=== PATIENT | male | born 2000 | race African-American/Black ===

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

== ENCOUNTER 2022-03-01 11:24 | Inpatient (IN) | payer OTHER ==
[~2022-03-01] VITALS: Ht 175.3 cm; Wt 85.0 kg
[~2022-03-01 11:24] MED LIST: HYDR50TA70 PO; SERT50TA29 PO
[2022-03-01 12:43] LABS: HEMATOCRIT 43.2 % (42.0-52.0); HEMOGLOBIN 15.4 g/dl (13.5-17.5); MEAN CORPUSCULAR HEMOGLOBIN 29.2 pg (27.0-33.0); MEAN CORPUSCULAR HGB CONC 35.6 g/dl (32.0-36.5); MEAN CORPUSCULAR VOLUME 81.8 fl (80.0-96.0); PLATELET COUNT, AUTOMATED 237 10^3/uL (150-450); RED BLOOD COUNT 5.28 10^6/uL (4.30-6.10); WHITE BLOOD COUNT 7.2 10^3/uL (4.0-10.0)
[2022-03-01 13:17] LABS: RSV AMPLIFICATION NEGATIVE (NEGATIVE)
[2022-03-01 13:18] LABS: ACETAMINOPHEN LEVEL < 2.0 UG/ML (10.0-30.0); ALBUMIN 3.7 GM/DL (3.2-5.2); ALT/SGPT 15 U/L (12-78); BILIRUBIN,DIRECT 0.1 MG/DL (0.0-0.2); BILIRUBIN,TOTAL 0.4 MG/DL (0.2-1.0); BLOOD UREA NITROGEN 8 MG/DL (7-18); CALCIUM LEVEL 9.6 MG/DL (8.5-10.1); CARBON DIOXIDE LEVEL 31 MEQ/L (21-32); CHLORIDE LEVEL 107 MEQ/L (98-107); CREATININE FOR GFR 1.01 MG/DL (0.70-1.30); ETHYL ALCOHOL (ETHANOL) < 0.003 % (0.000-0.010); GLUCOSE, FASTING 90 MG/DL (70-100); POTASSIUM SERUM 3.7 MEQ/L (3.5-5.1); SALICYLATE LEVEL < 1.7 MG/DL (5.0-30.0); SODIUM LEVEL 143 MEQ/L (136-145); TOTAL PROTEIN 7.4 GM/DL (6.4-8.2)
[2022-03-01 13:32] LABS: AMPHETAMINES LEVEL URINE NEGATIVE (NEGATIVE); BARBITURATES URINE NEGATIVE (NEGATIVE); BENZODIAZEPINES URINE NEGATIVE (NEGATIVE); CANNABINOIDS URINE POSITIVE (NEGATIVE); COCAINE METABOLITE URINE NEGATIVE (NEGATIVE); METHADONE URINE NEGATIVE (NEGATIVE); OPIATES URINE NEGATIVE (NEGATIVE); PHENCYCLIDINE URINE NEGATIVE (NEGATIVE)
[2022-03-01] MEDS ORDERED: HOME MED LIST COMPLETE! XX SCH (20:50)
[2022-03-02] MEDS ORDERED: MOM 30ML SUSPENSION UDC PO PRN (15:20)
[2022-03-02] MEDS ORDERED: MAALOX 30 ML SUSP *UDC PO PRN (15:20)
[2022-03-02] MEDS ORDERED: ACETAMINOPHEN TAB 650MG DOSE (2X325MG) PO PRN (15:20)
[2022-03-02 16:14] VITALS: BP 142/84
[2022-03-03 06:33] VITALS: BP 125/75
[2022-03-03 18:38] VITALS: BP 151/67
[2022-03-04 06:34] VITALS: BP 148/98
[2022-03-04 18:51] VITALS: BP 145/72
[2022-03-05 06:19] VITALS: BP 139/77
[2022-03-05 17:54] VITALS: BP 105/78
[2022-03-05] MEDS: traZODone 50 MG TAB PO PRN (21:08)
[2022-03-06 07:08] VITALS: BP 139/86
[2022-03-06 18:00] VITALS: BP 149/70
[2022-03-06] MEDS: traZODone 50 MG TAB PO PRN (22:27)
[2022-03-07 06:58] VITALS: BP 128/88
== END 2022-03-07 12:35 | disposition home or self-care (01) | DRG 882 ==
LOC: M ED 11:24 → M ED INP 03-02 15:19 → M PSY 03-02 16:10
PROVIDERS: ADMIT Psychiatry & Neurology Psychiatry; ATTEND Psychiatry & Neurology Psychiatry
DX: F43.25 Adjustment disorder with mixed disturbance of emotions and conduct (principal); R45.851 Suicidal ideations; Z63.4 Disappearance and death of family member; Z56.4 Discord with boss and workmates; Z20.822 Contact with and (suspected) exposure to COVID-19; G43.909 Migraine, unspecified, not intractable, without status migrainosus; F90.9 Attention-deficit hyperactivity disorder, unspecified type; F17.290 Nicotine dependence, other tobacco product, uncomplicated

== ENCOUNTER 2023-10-09 09:09 | Inpatient (IN) | payer OTHER ==
[~2023-10-09] VITALS: Ht 175.3 cm; Wt 93.2 kg
[2023-10-09 09:48] LABS: HEMATOCRIT 42.5 % (42.0-52.0); HEMOGLOBIN 15.5 g/dl (13.5-17.5); MEAN CORPUSCULAR HEMOGLOBIN 29.3 pg (27.0-33.0); MEAN CORPUSCULAR HGB CONC 36.5 g/dl (32.0-36.5); MEAN CORPUSCULAR VOLUME 80.3 fl (80.0-96.0); PLATELET COUNT, AUTOMATED 241 10^3/uL (150-450); RED BLOOD COUNT 5.29 10^6/uL (4.30-6.10)
[2023-10-09] MEDS ORDERED: MED REC IN PROGRESS XX SCH (09:50)
[2023-10-09 10:06] LABS: ETHYL ALCOHOL (ETHANOL) 0.003 % (0.000-0.010)
[2023-10-09 10:07] LABS: SALICYLATE LEVEL < 3.0 MG/DL (<30)
[2023-10-09 10:08] LABS: ALBUMIN 4.2 G/DL (3.2-5.2); ALKALINE PHOSPHATASE 91 U/L (46-116); ALT/SGPT 10 U/L (7.0-40); AST/SGOT 11 U/L (<34); BILIRUBIN,DIRECT 0.2 MG/DL (<0.4); BILIRUBIN,TOTAL 0.5 MG/DL (0.3-1.2); BLOOD UREA NITROGEN 11 MG/DL (9-23); CARBON DIOXIDE LEVEL 26 MMOL/L (20-31); CHLORIDE LEVEL 104 MMOL/L (98-107); CREATININE FOR GFR 1.04 MG/DL (0.70-1.30); GLOMERULAR FILTRATION RATE > 60.0 (>60); GLUCOSE, FASTING 131 MG/DL (60-100); POTASSIUM SERUM 4.2 MMOL/L (3.5-5.1); SODIUM LEVEL 137 MMOL/L (136-145); TOTAL PROTEIN 7.1 G/DL (5.7-8.2)
[2023-10-09 10:10] LABS: THYROID STIMULATING HORMONE 1.134 uIU/ML (0.55-4.78)
[2023-10-09 11:26] LABS: AMPHETAMINES LEVEL URINE NEGATIVE (NEGATIVE)
[2023-10-09 11:27] LABS: BARBITURATES URINE NEGATIVE (NEGATIVE); BENZODIAZEPINES URINE NEGATIVE (NEGATIVE); COCAINE METABOLITE URINE NEGATIVE (NEGATIVE); METHADONE URINE NEGATIVE (NEGATIVE); OPIATES URINE NEGATIVE (NEGATIVE); PHENCYCLIDINE URINE NEGATIVE (NEGATIVE)
[2023-10-09 11:31] LABS: CANNABINOIDS URINE POSITIVE (NEGATIVE)
[2023-10-09] MEDS ORDERED: ACETAMINOPHEN TAB 650MG DOSE (2X325MG) PO PRN (12:50)
[2023-10-09] MEDS ORDERED: MOM 30ML SUSPENSION UDC PO PRN (12:50)
[2023-10-09] MEDS ORDERED: IBUPROFEN 400MG TAB PO PRN (12:50)
[2023-10-09] MEDS ORDERED: diphenhydrAMINE 25MG CAP PO PRN (12:50)
[2023-10-09] MEDS ORDERED: MAALOX 30 ML SUSP *UDC PO PRN (12:50)
[2023-10-09] MEDS ORDERED: HOME MED LIST COMPLETE! XX SCH (14:35)
[2023-10-09 15:53] VITALS: BP 119/56; TEMP 98.1; O2SAT 99
[2023-10-10 06:30] VITALS: BP 125/68; TEMP 98.3; O2SAT 99
[2023-10-10] MEDS: NICOTINE 21MG/24HR 1 EA TRANSDERMAL TD SCH (08:35)
[2023-10-10 17:12] VITALS: BP 140/90; TEMP 98.2; O2SAT 99
[2023-10-11 06:39] VITALS: BP 104/68; TEMP 97
[2023-10-11] MEDS: NICOTINE 21MG/24HR 1 EA TRANSDERMAL TD SCH (08:44)
[2023-10-11 16:34] VITALS: BP 126/76; TEMP 97.9; O2SAT 97
[2023-10-12 06:39] VITALS: BP 116/58; TEMP 99; O2SAT 100
[2023-10-12] MEDS: NICOTINE 21MG/24HR 1 EA TRANSDERMAL TD SCH (08:06)
[2023-10-12 16:00] VITALS: BP 113/82; TEMP 97.4; O2SAT 98
[2023-10-13 06:41] VITALS: BP 130/64; TEMP 97.4; O2SAT 98
[2023-10-13] MEDS: NICOTINE 21MG/24HR 1 EA TRANSDERMAL TD SCH (08:57)
[2023-10-13 09:38] VITALS: BP 130/64; TEMP 97.4; O2SAT 98
[2023-10-13 15:32] VITALS: BP 148/72; TEMP 98.3; O2SAT 99
[2023-10-14 06:49] VITALS: BP 135/74; TEMP 97.3; O2SAT 99
[2023-10-14] MEDS: NICOTINE 21MG/24HR 1 EA TRANSDERMAL TD SCH (09:17)
[2023-10-14] MEDS: VENLAFAXINE **XR** 37.5 MG CAPSULE PO SCH (13:15)
[2023-10-14 18:00] VITALS: BP 163/74; TEMP 98.3; O2SAT 97
[2023-10-14] MEDS ORDERED: OLANZapine 5 MG TAB PO SCH (21:00)
[2023-10-15 06:34] VITALS: BP 139/97; TEMP 98; O2SAT 99
[2023-10-15] MEDS: VENLAFAXINE **XR** 37.5 MG CAPSULE PO SCH (08:22)
[2023-10-15] MEDS: NICOTINE 21MG/24HR 1 EA TRANSDERMAL TD SCH (08:22)
[2023-10-15] MEDS: PROPRANOLOL 20 MG TAB PO SCH ×2 (11:10→21:47)
[2023-10-15 18:01] VITALS: BP 149/98; TEMP 98; O2SAT 98
[2023-10-15] MEDS: traZODone 50 MG TAB PO PRN (21:47)
[2023-10-16 06:22] VITALS: BP 122/69; TEMP 97.4; O2SAT 98
[2023-10-16] MEDS: VENLAFAXINE **XR** 37.5 MG CAPSULE PO SCH (08:41)
[2023-10-16] MEDS: PROPRANOLOL 20 MG TAB PO SCH ×2 (08:41→21:09)
[2023-10-16] MEDS: NICOTINE 21MG/24HR 1 EA TRANSDERMAL TD SCH (08:41)
[2023-10-16 18:12] VITALS: BP 146/82; TEMP 97.4; O2SAT 98
[2023-10-16] MEDS: traZODone 50 MG TAB PO PRN (21:08)
[2023-10-17 06:31] VITALS: BP 122/62; TEMP 96.9; O2SAT 98
[2023-10-17] MEDS: NICOTINE 21MG/24HR 1 EA TRANSDERMAL TD SCH (09:00)
[2023-10-17] MEDS: VENLAFAXINE **XR** 37.5 MG CAPSULE PO SCH (09:27)
[2023-10-17] MEDS: PROPRANOLOL 20 MG TAB PO SCH ×2 (09:31→21:00)
[2023-10-17 16:45] VITALS: BP 140/79; TEMP 97.5; O2SAT 100
[2023-10-18 06:36] VITALS: BP 142/75; TEMP 98.2; O2SAT 100
[2023-10-18] MEDS: NICOTINE 21MG/24HR 1 EA TRANSDERMAL TD SCH (09:00)
[2023-10-18] MEDS: VENLAFAXINE **XR** 37.5 MG CAPSULE PO SCH (09:22)
[2023-10-18] MEDS: PROPRANOLOL 20 MG TAB PO SCH ×2 (09:23→20:43)
[2023-10-18 16:30] VITALS: BP 140/86; TEMP 97.7; O2SAT 100
[2023-10-19 06:05] VITALS: BP 119/65; TEMP 97.9; O2SAT 97
[2023-10-19] MEDS: NICOTINE 21MG/24HR 1 EA TRANSDERMAL TD SCH (08:16)
[2023-10-19] MEDS: VENLAFAXINE **XR** 37.5 MG CAPSULE PO SCH (08:18)
[2023-10-19] MEDS: PROPRANOLOL 20 MG TAB PO SCH ×2 (08:18→20:24)
[2023-10-19 18:27] VITALS: BP 115/61; TEMP 97.6
[2023-10-19] MEDS: traZODone 50 MG TAB PO PRN (20:24)
[2023-10-20 06:26] VITALS: BP 134/65; TEMP 98.4; O2SAT 99
[2023-10-20] MEDS: NICOTINE 21MG/24HR 1 EA TRANSDERMAL TD SCH (09:00)
[2023-10-20] MEDS: PROPRANOLOL 20 MG TAB PO SCH ×2 (09:09→20:23)
[2023-10-20] MEDS: VENLAFAXINE **XR** 37.5 MG CAPSULE PO SCH (09:09)
[2023-10-20 18:54] VITALS: BP 150/90; TEMP 98.8
[2023-10-20] MEDS: traZODone 50 MG TAB PO PRN (20:23)
[2023-10-21 06:24] VITALS: BP 144/77; TEMP 97.9; O2SAT 96
[2023-10-21] MEDS: PROPRANOLOL 20 MG TAB PO SCH ×2 (08:30→21:41)
[2023-10-21] MEDS: VENLAFAXINE **XR** 37.5 MG CAPSULE PO SCH (08:31)
[2023-10-21] MEDS: NICOTINE 21MG/24HR 1 EA TRANSDERMAL TD SCH (08:36)
[2023-10-21 08:37] VITALS: BP 144/77; TEMP 97.9; O2SAT 96
[2023-10-21] MEDS ORDERED: OLANZapine ORAL DISINTEGRATING TAB 5MG PO PRN (09:45)
[2023-10-21 18:10] VITALS: BP 136/82; TEMP 98.4; O2SAT 100
[2023-10-21] MEDS: traZODone 50 MG TAB PO PRN (21:41)
[2023-10-22 06:36] VITALS: BP 128/60; TEMP 97.6; O2SAT 100
[2023-10-22] MEDS: NICOTINE 21MG/24HR 1 EA TRANSDERMAL TD SCH (08:32)
[2023-10-22 08:36] VITALS: BP 146/92
[2023-10-22] MEDS: PROPRANOLOL 20 MG TAB PO SCH (08:36)
[2023-10-22] MEDS: VENLAFAXINE **XR** 37.5 MG CAPSULE PO SCH (08:36)
[2023-10-22] MEDS ORDERED: OLAN5ZYD PO (09:20)
[2023-10-22] MEDS ORDERED: PROP20TA PO (09:20)
[2023-10-22] MEDS ORDERED: VENL37.598 PO (09:20)
[2023-10-22] MEDS ORDERED: TRAZ-252 PO (09:20)
[2023-10-22] MEDS ORDERED: NICO21PAT TD (09:20)
== END 2023-10-22 09:55 | disposition home or self-care (01) | DRG 885 ==
LOC: EDBD 09:09 → M ED 09:09 → M ED INP 12:47 → M PSY 15:49
PROVIDERS: ADMIT Student in an Organized Health Care Education/Training Program; ATTEND Student in an Organized Health Care Education/Training Program
DX: F32.89 Other specified depressive episodes (principal); F12.10 Cannabis abuse, uncomplicated; F17.290 Nicotine dependence, other tobacco product, uncomplicated; F60.3 Borderline personality disorder; F60.2 Antisocial personality disorder; Z91.51 Personal history of suicidal behavior; Z62.819 Personal history of unspecified abuse in childhood; G43.909 Migraine, unspecified, not intractable, without status migrainosus; Z65.3 Problems related to other legal circumstances; F43.20 Adjustment disorder, unspecified